=== PATIENT | female | born 1995 | race Caucasian/White ===

== ENCOUNTER 2018-04-28 22:01 | Emergency (ER) | payer SELFPAY, OTHER | END 2018-04-28 23:12 | disposition left against medical advice (07) | LOC: E/R 23:12 | DX: Z53.21 Procedure and treatment not carried out due to patient leaving prior to being seen by health care provider (principal) ==

== ENCOUNTER 2018-05-21 10:22 | Emergency (ER) | payer SELFPAY, OTHER | END 2018-05-21 12:12 | disposition home or self-care (01) | LOC: FTE 10:22 | DX: S51.011A Laceration without foreign body of right elbow, initial encounter (principal); W25.XXXA Contact with sharp glass, initial encounter; Y92.9 Unspecified place or not applicable; Z87.891 Personal history of nicotine dependence | CPT/HCPCS: 73080; 73080-RT; 99283-25 ==